=== PATIENT | male | born 2000 | race Caucasian/White ===

== ENCOUNTER 2018-04-01 22:38 | Emergency (ER) | payer OTHER, BC ==
[~2018-04-01] VITALS: Ht 167.6 cm; Wt 55.0 kg
[~2018-04-01 22:38] MED LIST: Z.0.NO CURRENT MEDS
[2018-04-01 23:01] VITALS: BP 112/53; PULSE 58; RESP 18; TEMP 98.7; O2SAT 100
[2018-04-01] MEDS ORDERED: ORPHENADRINE INJ 60 MG/2 ML AMP IM ONE (23:15)
[2018-04-01] MEDS ORDERED: KETOROLAC TROMETHAMINE 60 MG/2 ML (IM) VIAL IM ONE (23:15)
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
== END 2018-04-02 01:46 | disposition home or self-care (01) ==
LOC: NEPD 22:38
DX: S16.1XXA Strain of muscle, fascia and tendon at neck level, initial encounter (principal); S39.012A Strain of muscle, fascia and tendon of lower back, initial encounter; M54.5 Low back pain; F12.90 Cannabis use, unspecified, uncomplicated; V49.49XA Driver injured in collision with other motor vehicles in traffic accident, initial encounter; Y92.410 Unspecified street and highway as the place of occurrence of the external cause
CPT/HCPCS: 72072; 72100; 72125; 96372; 99284; J1885; J2360; L0150